=== PATIENT | female | born 1930 | race Caucasian/White ===

== ENCOUNTER 2018-05-14 16:56 | Emergency (ER) | payer MEDICARE, BC ==
[2018-05-14] MEDS ORDERED: Diltiazem IV* 5 MG/ML 5 ML VIAL (for loading dose/IV Push) (25 MG) IV PUSH ONE (17:14)
--- NOTE | 2018-05-14 17:15 | ED ---
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 She notes nausea and lightheadedness but denies dizziness and SOB. She had an PA in December and January 2018 followed by stenting in January 2018 at [facility]. The pressure is rated 5/10 in severity. Home Medications Medication Instructions Recorded Confirmed Type Apixaban* [Eliquis*] 2.5 mg PO BID 05/14/18 05/14/18 History Gabapentin CAP(*) [Neurontin 400 800 mg PO QID 05/14/18 05/14/18 History mg CAP(*)] Metoprolol Tartrate TAB* 50 mg PO BID 05/14/18 05/14/18 History [Lopressor TAB*] - History of Current Complaint Chief Complaint: EDChestPainROMI Time Seen by Provider: 05/14/18 17:00 Hx Obtained From: Patient, Family/Master Welder Onset/Duration: Started Minutes Ago - 45-60 minutes ACADEMIC INTERVENTIONIST Timing: Constant Initial Severity: Moderate Current Severity: Moderate Pain Intensity: 5 Pain Scale Used: Adult Non Verbal Chest Pain Location: Diffuse Chest Pain Radiates: No Character: Dull/Aching Aggravating Factor(s): Position Alleviating Factor(s): Nothing Associated Signs and Symptoms: Positive: Lightheadedness, Nausea. Negative: Dizziness, Shortness of Breath - Allergy/Home Medications Allergies/Adverse Reactions: Allergies Allergy/AdvReac Type Severity Reaction Status Date / Time codeine Allergy Nausea And Verified 05/14/18 19:06 Vomiting ibuprofen Allergy Nausea And Verified 05/14/18 19:06 Vomiting meperidine [From Demerol] Allergy Nausea And Verified 05/14/18 19:06 Vomiting Home Medications: Home Medications Apixaban* [Eliquis*] 2.5 mg PO BID 05/14/18 [History Confirmed 05/14/18] Gabapentin CAP(*) [Neurontin 400 mg CAP(*)] 800 mg PO QID 05/14/18 [History Confirmed 05/14/18] Metoprolol Tartrate TAB* [Lopressor TAB*] 50 mg PO BID 05/14/18 [History Confirmed 05/14/18] PMH/Surg Hx/FS Hx/Imm Hx Previously Healthy: No Cardiovascular History: Reports: Hx Atrial Fibrillation, Hx Myocardial Infarction - x3 , Other Cardiovascular Problems/Disorders - Stenting - Cancer History Cancer Type, Location and Year: None reported - Surgical History Surgery Procedure, Year, and Place: None reported Infectious Disease History: Yes Infectious Disease History: Denies: Traveled Outside the [place] in Last 30 Days - Family History Known Family History: Positive: Cardiac Disease - Social History Occupation: Retired Lives: Alone Alcohol Use: Rare Substance Use Type: Reports: None Smoking Status (MU): Former Smoker Review of Systems Constitutional: Negative - Dizziness, Other - Positive: lightheadedness Positive: Chest Pain Negative: Shortness Of Breath Positive: Nausea All Other Systems Reviewed And Are Negative: Yes Physical Exam - Summary Physical Exam Summary: Appearance: Well appearing, no pain distress Skin: warm, dry, reflects adequate perfusion Head/face: normal Eyes: EOMI, TANNA ENT: normal Neck: supple, non-tender Respiratory: CTA, breath sounds present Cardiovascular: Irregularly irregular rate, tachycardia, pulses symmetrical Abdomen: non-tender, soft Bowel: present Musculoskeletal: normal, strength/ROM intact Neuro: normal, sensory motor intact, A&Ox3 Triage Information Reviewed: Yes Vital Signs On Initial Exam: Initial Vitals Temp Pulse Resp BP Pulse Ox 97.5 F 145 14 136/101 98 05/14/18 16:57 05/14/18 16:57 05/14/18 16:57 05/14/18 16:57 05/14/18 16:57 Vital Signs Reviewed: Yes Diagnostics - Vital Signs Vital Signs Temp Pulse Resp BP Pulse Ox 05/14/18 16:57 97.5 F 145 14 136/101 98 - Laboratory Result Diagrams: 05/14/18 17:31 05/14/18 17:31 Lab Statement: Any lab studies that have been ordered have been reviewed, and results considered in the medical decision making process. - Radiology CXR Radiology Interpretation Completed By: ED Physician - This is a normal CXR. - EKG 17:09 Cardiac Rate: Tachycardia - 137 bpm Summary of EKG Findings: Afib with rapid ventricular rate 18:45 Cardiac Rate: NL - 70 bpm EKG Rhythm: Sinus Rhythm Summary of EKG Findings: No acute changes Re-Evaluation - Re-Evaluation First Eval Re-Evaluation Time: 21:09 Change: Improved - The patient would like to go home. 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 She notes nausea and lightheadedness but denies dizziness and SOB. She had an PA in December and January 2018 followed by angioplasty. A physical exam revealed tachycardia and an irregularly irregular heart rate. A CXR is unremarkable. An EKG reveals Afib with a rapid ventricular rate. In the ED course, pt was given Diltiazem 20mg IV which improved the symptoms. I discussed the care of the pt with Dr. Che, the patient cylinder valve repairer who recommended repeating cardiac enzyme tests and increasing her Metoprolol dose to 5o mg. Dr. Che agreed to see the patient on Wednesday05/16/2018. She declined admission.Patient will be discharged with a final Dx of Afib with rapid ventricular rate ad chest pain, and instructions to return to the ED in case of any new or worsening of sx within the next 48 hours. Pt is agreeable with this plan. - Chest Pain Differential Diagnosis/HQI/PQRI: Acute PA, ACS, CHF - Diagnoses Provider Diagnoses: Chest pain, Atrial fibrillation with rapid ventricular response - Provider Notifications Discussed Care Of Patient With: Dr. Che - Patient's cylinder valve repairer Instructed by Provider To: Other - Dr. Che recommended repeating the cardiac emzyme tests and increasing the Metaprolol dose to 50 mg PO. He will se the patient in his office on Wednesday05/16/2018. Discharge - Sign-Out/Discharge Documenting (check all that apply): Patient Departure - DC - Discharge Plan Condition: Stable Disposition: HOME Prescriptions: Metoprolol Tartrate 50 mg PO BID #60 tablet Patient Education Materials: A-fib (Atrial Fibrillation) (ED), Chest Pain (ED) Referrals: [facility] [Outside] Additional Instructions: Follow up with your cylinder valve repairer on Wednesday05/16/2018. Return to ED for any new or worsening symptoms within the next 48 hours - Billing Disposition and Condition Condition: STABLE Disposition: Home - Attestation Statements Document Initiated by Scribe: Yes Documenting Scribe: Dorys De Leon Provider For Whom Scribe is Documenting (Include Credential): Dr. Percy Almonte MD Scribe Attestation: I, Dorys De Leon, scribed for Dr. Percy Almonte MD on 05/14/18 at 2134. Scribe Documentation Reviewed: Yes Provider Attestation: The documentation as recorded by the scribe, Dorys De Leon accurately reflects the service I personally performed and the decisions made by me, Dr. Percy Almonte MD
[2018-05-14 17:41] LABS: ABS Basophils 0.1 10^3/ul (0-0.2); ABS Eosinophils 0.2 10^3/ul (0-0.6); ABS Monocytes 0.6 10^3/ul (0-0.8); ABS Neutrophils 2.9 10^3/ul (1.5-7.7); ABS Nucleated RBC 0 10^3/ul; Eosinophil % 2.3 % (0-6); Hematocrit 38 % (35-47); Hemoglobin 12.4 g/dl (12.0-16.0); Lymphocyte % 44.6 % (25-47); Mean Corpuscular HGB Conc 33 g/dl (31-36); Mean Corpuscular Hemoglobin 31 pg (27-31); Mean Corpuscular Volume 92 fL (80-97); Mean Platelet Volume 9.4 fL (7.4-10.4); Nucleated Red Blood Cells % 0.1; Platelet Count 244 10^3/ul (150-450); Red Blood Count 4.06 10^6/ul (4.00-5.40); Red Cell Distribution Width 14 % (10.5-15); White Blood Count 6.8 10^3/ul (3.5-10.8)
[2018-05-14 17:51] LABS: Activated Partial Thrombo Time 47.6 seconds (26.0-36.3); INR 0.99 (0.77-1.02)
[2018-05-14 17:58] LABS: Albumin 4.2 g/dL (3.2-5.2); Albumin/Globulin Ratio 1.3 (1-3); BUN/Creatinine Ratio 25.6 (8-20); Calcium 9.8 mg/dL (8.6-10.3); EGFR Non-African American 66.3 (>60); Globulin 3.3 g/dL (2-4); Magnesium 1.9 mg/dL (1.9-2.7); Potassium 3.6 mmol/L (3.5-5.0); Total Bilirubin 0.3 mg/dL (0.2-1.0); Total Protein 7.5 g/dL (6.4-8.9)
[2018-05-14] MEDS ORDERED: Metoprolol Tartrate TAB* 50 mg PO ONE (18:26)
[2018-05-14] MEDS ORDERED: Apixaban* 2.5 MG TAB PO ONE (19:09)
[2018-05-14] MEDS ORDERED: Gabapentin CAP(*) 400 MG PO ONE (19:10)
[2018-05-14 21:32] VITALS: BP 117/61
== END 2018-05-14 22:30 | disposition home or self-care (01) ==
LOC: ED 16:56
DX: I48.0 Paroxysmal atrial fibrillation (principal); I48.92 Unspecified atrial flutter; I44.30 Unspecified atrioventricular block; Z95.5 Presence of coronary angioplasty implant and graft; R07.89 Other chest pain; Z88.6 Allergy status to analgesic agent; Z88.5 Allergy status to narcotic agent; Z87.891 Personal history of nicotine dependence
CPT/HCPCS: 36415; 71045; 80053; 83605; 83735; 83880; 84484; 85025; 85610; 85730; 93005; 96374; 99283; A9270-GY